=== PATIENT | male | born 1995 | race Native Hawaiian/Other Pacific Islander ===

== ENCOUNTER 2018-10-11 09:48 | Emergency (ER) | payer SELFPAY ==
[2018-10-11 09:56] VITALS: RESP 18; TEMP 98.3; O2SAT 99
[2018-10-11 09:57] VITALS: BMI 25.7
[2018-10-11] MEDS ORDERED: cefTRIAXone (Rocephin) 250 mg Inj ONE (10:49)
[2018-10-11] MEDS: cefTRIAXone (Rocephin) 250 mg Inj IM ONE (10:52)
[2018-10-11 11:08] LABS: URINE BILIRUBIN NEGATIVE (NEGATIVE); URINE BLOOD NEGATIVE (NEGATIVE); URINE CLARITY SLIGHTY-CLOUDY (Clear); URINE COLOR YELLOW (YELLOW); URINE GLUCOSE (UA) NEG (NEGATIVE); URINE LEUKOCYTE ESTERASE NEG Leu/uL (Negative); URINE PROTEIN NEGATIVE (NEGATIVE); URINE UROBILINOGEN 0.2-1.0 mg/dL (0.2-1.0)
[2018-10-11 11:40] VITALS: BP 140/80; PULSE 70
--- NOTE | 2018-10-11 12:20 | ED PDOC ---
HPI: Male Pain Time Seen by Provider: 10/11/18 10:25 Chief Complaint (Nursing): Male Genitourinary Chief Complaint (Provider): Male Genitourinary History Per: Patient History/Exam Limitations: no limitations Onset/Duration Of Symptoms: Days (x3) Current Symptoms Are (Timing): Still Present Additional Complaint(s): 23 year old male presents to the emergency department for an evaluation of pain on urination that became worse 3 days ago. Patient states he is monogamous relationship with his partner and believes his partner is monogamous, as well. Additionally, he reports history of STD that has been treated in the past, in which, current symptoms feel similar, although, he is unsure of the past diagnosis. Otherwise, he denies any penile discharge, testicular or foreskin retraction abnormality. PCP: none provided Past Medical History Reviewed: Historical Data, Nursing Documentation, Vital Signs Vital Signs: Last Vital Signs Temp 98.3 F 10/11/18 09:55 Pulse 70 10/11/18 11:15 Resp 18 10/11/18 11:15 BP 140/80 10/11/18 11:15 Pulse Ox 99 10/11/18 11:15 Primary Care Provider: Non [facility] Provider, - Medical History PMH: No Chronic Diseases - Surgical History Surgical History: No Surg Hx - Family History Family History: States: Unknown Family Hx - Allergies Allergies/Adverse Reactions: Allergies Allergy/AdvReac Type Severity Reaction Status Date / Time No Known Allergies Allergy Verified 10/11/18 10:02 Review of Systems ROS Statement: Except As Marked, All Systems Reviewed And Found Negative Genitourinary Male: Positive for: Dysuria. 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 Negative for: erythema, testicular tenderness (R) (on elevation), testicular tenderness (L) (on elevation), ure thral discharge, other (testicular swelling or bulging) - Laboratory Results Lab Results: Urine Color Yellow (YELLOW) 10/11/18 10:55 Urine Clarity Slighty-cloudy (Clear) 10/11/18 10:55 Urine pH 6.0 (5.0-8.0) 10/11/18 10:55 Ur Specific [place] 1.023 (1.003-1.030) 10/11/18 10:55 Urine Protein Negative mg/dL (NEGATIVE) 10/11/18 10:55 Urine Glucose (UA) Neg mg/dL (NEGATIVE) 10/11/18 10:55 Urine Ketones Negative mg/dL (NEGATIVE) 10/11/18 10:55 Urine Blood Negative (NEGATIVE) 10/11/18 10:55 Urine Nitrate Negative (NEGATIVE) 10/11/18 10:55 Urine Bilirubin Negative (NEGATIVE) 10/11/18 10:55 Urine Urobilinogen 0.2-1.0 mg/dL (0.2-1.0) 10/11/18 10:55 Ur Leukocyte Esterase Neg Galo/uL (Negative) 10/11/18 10:55 Urine RBC (Auto) 2 /hpf (0-3) 10/11/18 10:55 Urine Microscopic WBC < 1 /hpf (0-5) 10/11/18 10:55 - ECG O2 Sat by Pulse Oximetry: 99 (RA) Pulse Ox Interpretation: Normal Medical Decision Making Medical Decision Making: Time: 1030 Initial Plan: work up for dysuria. Urine dip was (-). UA and chlamydia sent to lab. Patient is instructed to refrain from sexual activity for 1 week. * Chlamydia/GC RNA * Rocephin IM * Zithromax PO * UA Scribe Attestation: Documented by Yari Cottrell, acting as a scribe for Jennifer Colmenares MD. Provider Scribe Attestation: All medical record entries made by the Scribe were at my direction and personally dictated by me. I have reviewed the chart and agree that the record accurately reflects my personal performance of the history, physical exam, medical decision making, and the department course for this patient. I have also personally directed, reviewed, and agree with the discharge instructions and disposition. Disposition - Clinical Impression Clinical Impression: Pain with urination, Genitourinary complaints - Disposition Disposition: Routine/Home Disposition Time: 10:35 Condition: STABLE Additional Instructions: Do not have sex until symptoms have cleared until clearance from a doctor. Follow up with your doctor in one week. Return to the emergency department if symptoms worsen or if new symptoms develop. Use condoms during sex to prevent sexually transmitted infection. Instructions: Dysuria, Adult (DC) Forms: [facility] (Cymro) Print Language: RWANDAN
== END 2018-10-11 11:16 | disposition home or self-care (01) ==
LOC: H.ER 09:48
DX: R30.0 Dysuria (principal)
CPT/HCPCS: 81003; 87491; 87591; 96372; 99283; J0696